=== PATIENT | female | born 1995 | race Caucasian/White ===

== ENCOUNTER → 2021-07-29 | Outpatient (CLI) | payer BC ==
[2021-07-29 15:33] LABS: BASO % 0.6 % (0.0-1.0); EOS % 0.4 % (0.0-3.0); HEMATOCRIT 35.9 % (36.0-47.0); HEMOGLOBIN 12.7 g/dl (12.0-15.5); LYMPH # 1.6 10^3/uL (1.5-5.0); LYMPH % 22.2 % (24.0-44.0); MEAN CORPUSCULAR HEMOGLOBIN 31.5 pg (27.0-33.0); MEAN CORPUSCULAR HGB CONC 35.4 g/dl (32.0-36.5); MEAN CORPUSCULAR VOLUME 89.1 fl (80.0-96.0); MONO # 0.5 10^3/uL (0.0-0.8); MONO % 6.5 % (2.0-8.0); NEUTROPHILS # 5.1 10^3/uL (1.5-8.5); PLATELET COUNT, AUTOMATED 245 10^3/uL (150-450); RED BLOOD COUNT 4.03 10^6/uL (4.00-5.40); WHITE BLOOD COUNT 7.2 10^3/uL (4.0-10.0)
[2021-07-29 17:54] LABS: GC DNA AMPLIFICATION NEGATIVE (NEGATIVE)
[2021-07-29 21:42] LABS: HEPATITIS C VIRUS ABY INDEX 0.1 INDEX (<0.8); HIV 1&2 SCREEN CENTAUR NEGATIVE (NEGATIVE)
== END ==
LOC: M PLALAB 14:00
PROVIDERS: ATTEND Obstetrics & Gynecology
DX: Z34.81 Encounter for supervision of other normal pregnancy, first trimester (principal)

== ENCOUNTER → 2021-10-09 | Outpatient (CLI) | payer BC | LOC: M WHC 08:23 | PROVIDERS: ATTEND Obstetrics & Gynecology | DX: Z34.92 Encounter for supervision of normal pregnancy, unspecified, second trimester (principal) ==

== ENCOUNTER → 2021-11-23 | Outpatient (CLI) | payer BC ==
[2021-11-23 14:45] LABS: HEMATOCRIT 34.8 % (36.0-47.0); HEMOGLOBIN 12.1 g/dl (12.0-15.5); MEAN CORPUSCULAR HGB CONC 34.8 g/dl (32.0-36.5); MEAN CORPUSCULAR VOLUME 97.8 fl (80.0-96.0); PLATELET COUNT, AUTOMATED 260 10^3/uL (150-450); RED BLOOD COUNT 3.56 10^6/uL (4.00-5.40); WHITE BLOOD COUNT 8.7 10^3/uL (4.0-10.0)
[2021-11-23 16:24] LABS: GC DNA AMPLIFICATION NEGATIVE (NEGATIVE)
== END ==
LOC: M PLALAB 09:43
PROVIDERS: ATTEND Obstetrics & Gynecology
DX: Z36.2 Encounter for other antenatal screening follow-up (principal); Z3A.24 24 weeks gestation of pregnancy

== ENCOUNTER → 2021-12-07 | Outpatient (CLI) | payer BC, OTHER | LOC: M WHC 10:31 | PROVIDERS: ATTEND Obstetrics & Gynecology | DX: Z36.2 Encounter for other antenatal screening follow-up (principal); Z3A.29 29 weeks gestation of pregnancy ==

== ENCOUNTER → 2022-01-22 | Outpatient (REF) | payer OTHER | LOC: M PLALAB 08:35 | PROVIDERS: ATTEND Specialist | DX: Z36.85 Encounter for antenatal screening for Streptococcus B (principal) ==

== ENCOUNTER 2022-02-19 15:13 | Inpatient (IN) | payer OTHER ==
[~2022-02-19] VITALS: Ht 160 cm; Wt 66.1 kg
[2022-02-19] VITALS (30 sets, daily range): BP systolic 103–145; BP diastolic 61–86
[2022-02-19] MEDS ORDERED: TUMS500C PO (15:39)
[2022-02-19] MEDS ORDERED: PRENTAB9 PO (15:39)
[2022-02-19] MEDS ORDERED: LACTATED RINGER'S 1000 ML IV STA (17:58)
[2022-02-19] MEDS ORDERED: LR 1,000 ML IV SCH (18:00)
[2022-02-19] MEDS ORDERED: miSOPROStol 50MCG 1/2 TABLET PO SCH (18:05)
[2022-02-19 18:43] LABS: HEMATOCRIT 35.6 % (36.0-47.0); HEMOGLOBIN 12.4 g/dl (12.0-15.5); MEAN CORPUSCULAR HEMOGLOBIN 31.1 pg (27.0-33.0); MEAN CORPUSCULAR HGB CONC 34.8 g/dl (32.0-36.5); MEAN CORPUSCULAR VOLUME 89.2 fl (80.0-96.0); PLATELET COUNT, AUTOMATED 240 10^3/uL (150-450); RED BLOOD COUNT 3.99 10^6/uL (4.00-5.40); WHITE BLOOD COUNT 11.5 10^3/uL (4.0-10.0)
[2022-02-19] MEDS ORDERED: FENTANYL 2MCG/ML ROPIVACAINE 0.2% IN 0.9% NACL 100ML IVBAG As Ordered ONE (19:34)
[2022-02-19] MEDS ORDERED: diphenhydrAMINE 50MG/ML VIAL (J1200) IV PRN (19:50)
[2022-02-19] MEDS ORDERED: EPIDURAL/PCA KEYS XX PRN ×2 (19:50→20:40)
[2022-02-19] MEDS ORDERED: ONDANSETRON 4MG 2ML VIAL IV PRN (19:50)
[2022-02-19] MEDS ORDERED: NALOXONE INJ 0.4MG/1ML VIAL (J2310 PER 1MG) IV PRN (19:50)
[2022-02-19] MEDS ORDERED: LR 500 ML IV PRN (19:50)
[2022-02-19] MEDS ORDERED: ePHEDrine SULFATE 25 MG/5 ML(5MG/ML) SYRINGE IVP PRN (19:50)
[2022-02-19] MEDS: FENTANYL/ROPIVACAINE/NACL BAG 100 ML EPIDURAL SCH (20:35)
[2022-02-19] MEDS ORDERED: FENTANYL/ROPIVACAINE/NACL BAG 100 ML EPIDURAL SCH (20:40)
[2022-02-20] VITALS (45 sets, daily range): BP systolic 111–152; BP diastolic 55–111
[2022-02-20] MEDS ORDERED: OXYTOCIN DRIP 30 UNITS in IV 1 EA IV SCH ×5 (02:20→09:05)
[2022-02-20] MEDS ORDERED: OXYTOCIN 30 UNITS IN 0.9% NaCl 500ML IV BAG (J2590) As Ordered ONE (02:36)
[2022-02-20] MEDS: FENTANYL/ROPIVACAINE/NACL BAG 100 ML EPIDURAL SCH (05:45)
[2022-02-20] MEDS ORDERED: LACTATED RINGER'S 1000 ML IV ONE (06:15)
[2022-02-20 08:55] LABS: CORD GAS ABE A -8.4; CORD GAS HCO3 A 20.3 MEQ/L; CORD GAS O2 SAT A 35.5 %; CORD GAS PH A 7.193 UNITS; CORD GAS PO2 A 20.1 mmHg; CORD GAS SBC A 16.4 MEQ/L
[2022-02-20 08:57] LABS: CORD GAS HCO3 V 19.5 MEQ/L; CORD GAS O2 SAT V 46.8 %; CORD GAS PCO2 V 47.2 mmHg; CORD GAS PH V 7.235 UNITS; CORD GAS PO2 V 23.8 mmHg
[2022-02-20] MEDS ORDERED: RHOGAM 300 MCG (1500 IU) INJ (J2790) IM SCH (09:05)
[2022-02-20] MEDS ORDERED: IBUPROFEN 600MG TAB PO PRN (09:05)
[2022-02-20] MEDS ORDERED: DOCUSATE SODIUM 100MG CAPSULE PO PRN (09:05)
[2022-02-20] MEDS ORDERED: METHYLERGONOVINE MALEATE 0.2 MG TAB PO PRN (09:05)
[2022-02-20] MEDS ORDERED: ACETAMINOPHEN TAB 650MG DOSE (2X325MG) PO PRN (09:05)
[2022-02-20] MEDS ORDERED: DIBUCAINE 1% OINTMENT 30GM TOP PRN (09:05)
[2022-02-20] MEDS ORDERED: ACETAMINOPHEN 500 MG TAB PO PRN (09:05)
[2022-02-20] MEDS: PRENATAL VITAMINS CHEWABLE TABLET PO SCH (09:33)
[2022-02-20] MEDS: IBUPROFEN 800 MG TAB PO PRN (16:51)
[2022-02-21] MEDS: IBUPROFEN 800 MG TAB PO PRN ×2 (01:52→10:10)
[2022-02-21 05:27] VITALS: BP 108/61
[2022-02-21] MEDS: PRENATAL VITAMINS CHEWABLE TABLET PO SCH (10:10)
[2022-02-22] MEDS ORDERED: MEASLES,MUMPS,RUBELLA VACCINE INJ (MMR-II) (90707) SC.IMMUN ONE (09:00)
== END 2022-02-21 14:00 | disposition home or self-care (01) | DRG 807 ==
LOC: M LDO 15:13 → M LDI 18:03 → M OBS 02-20 11:37
PROVIDERS: ADMIT Obstetrics & Gynecology; ATTEND Obstetrics & Gynecology
PROC: 10E0XZZ Delivery of Products of Conception, External Approach (ICD-10-PCS; principal; 2022-02-20)
PROC: 0KQM0ZZ Repair Perineum Muscle, Open Approach (ICD-10-PCS; 2022-02-20)
PROC: 10907ZC Drainage of Amniotic Fluid, Therapeutic from Products of Conception, Via Natural or Artificial Opening (ICD-10-PCS; 2022-02-20)
DX: O70.1 Second degree perineal laceration during delivery (principal); Z37.0 Single live birth; Z3A.40 40 weeks gestation of pregnancy

== ENCOUNTER → 2022-12-31 | Outpatient (REF) | payer OTHER ==
[~2022-12-31] MED LIST: PRENTAB9 PO; TUMS500C PO
== END ==
LOC: M PLALAB 14:35
PROVIDERS: ATTEND Advanced Practice Midwife
DX: Z53.9 Procedure and treatment not carried out, unspecified reason (principal)

== ENCOUNTER → 2023-03-18 | Outpatient (REF) | payer OTHER | LOC: M PLALAB 08:09 | PROVIDERS: ATTEND Advanced Practice Midwife | DX: Z53.9 Procedure and treatment not carried out, unspecified reason (principal) ==

== ENCOUNTER → 2023-07-01 | Outpatient (REF) | payer OTHER | LOC: M SFHCWAGY 13:34 | PROVIDERS: ATTEND Advanced Practice Midwife | DX: Z34.93 Encounter for supervision of normal pregnancy, unspecified, third trimester (principal) ==